=== PATIENT | female | born 1990 | race Caucasian/White ===

== ENCOUNTER 2022-05-04 15:51 | Emergency (ER) | payer MEDICAID ==
[~2022-05-04] VITALS: Ht 154.9 cm; Wt 73.0 kg
[2022-05-04 16:06] VITALS: BP 115/65
== END 2022-05-04 23:34 | disposition left against medical advice (07) ==
LOC: ER 15:51
DX: Z53.21 Procedure and treatment not carried out due to patient leaving prior to being seen by health care provider (principal)

== ENCOUNTER 2022-06-05 08:34 | Emergency (ER) | payer MEDICAID ==
[~2022-06-05] VITALS: Ht 154.9 cm; Wt 179.0 kg
[2022-06-05 08:48] VITALS: BP 103/67
== END 2022-06-05 09:13 | disposition home or self-care (01) ==
LOC: ER 08:34
DX: Z48.00 Encounter for change or removal of nonsurgical wound dressing (principal); Z88.0 Allergy status to penicillin
CPT/HCPCS: 99281

== ENCOUNTER 2023-10-25 18:19 | Emergency (ER) | payer BC, MEDICAID ==
[~2023-10-25] VITALS: Ht 154.9 cm; Wt 76.2 kg
[2023-10-25 18:35] VITALS: O2SAT 97
[2023-10-25] MEDS ORDERED: TETANUS, DIPHTHERIA, PERTUSSIS VAC/PF 0.5ML (>10YR OLD) IM ONE (19:45)
[2023-10-25] MEDS: ACETAMINOPHEN 325MG TABLET PO ONE (21:25)
[2023-10-25] MEDS: TETANUS, DIPHTHERIA, PERTUSSIS VAC/PF 0.5ML (>10YR OLD) IM ONE (21:27)
[2023-10-25] MEDS: LIDOCAINE HCL/PF 1% 10 MG/ML 5ML VIAL INFIL ONE (21:27)
[2023-10-25 22:17] VITALS: BP 112/63; PULSE 90; RESP 15; TEMP 98.3
== END 2023-10-25 22:30 | disposition home or self-care (01) ==
LOC: ER 18:19
DX: L03.011 Cellulitis of right finger (principal)
CPT/HCPCS: 10060; 99282; J3490; Z7610 ×3; 90715